=== PATIENT | female | born 1960 | race Caucasian/White ===

== ENCOUNTER → 2018-01-29 | Outpatient (CLI) | payer BC, OTHER ==
[~2018-01-29] MED LIST: DCS100C PO; DOCU-143 PO; EST30C PV; ESTR1TAB24 PO; FERR-84 PO; GLIP10TA13 PO; LISI1TAB8 PO; LOVA20TA2 PO; MEDR2.5T6 PO; MTF500T PO; NAPR-689 PO; OMEP20TA33 PO; OXYC1TAB12 PO; TRAM50TA2 PO; UBID200C PO
--- NOTE | 2018-01-29 15:33 | Diagnostic Imaging Report ---
INDICATION: Routine screening. COMPARISON: Comparison is made with prior mammogram from 04/22/2014. TECHNIQUE: 2D and 3D bilateral screening mammography was performed with computer-aided detection (CAD) system. FINDINGS: Scattered fibroglandular densities are identified bilaterally. No mass or malignant-appearing microcalcifications are seen. The axillae are unremarkable. IMPRESSION: No mammographic features suspicious for malignancy are identified. ACR BI-RADS Category 1: Negative. Result letter will be mailed to the patient. Note: At least 10% of breast cancer is not imaged by mammography. Dictated by: Dictated on workstation # [id number]
== END ==
LOC: RAD 14:28
PROVIDERS: ATTEND Internal Medicine
DX: Z12.31 Encounter for screening mammogram for malignant neoplasm of breast (principal)
CPT/HCPCS: 77067

== ENCOUNTER → 2019-10-15 | Outpatient (CLI) | payer BC ==
--- NOTE | 2019-10-16 18:29 | Diagnostic Imaging Report ---
INDICATION: Screening. At this time there are no current complaints. EXAMINATION: Bilateral digital screening mammogram with CAD. 3D tomographic images were obtained and reviewed. The current study was also evaluated with a Computer Aided Detection (CAD) system. COMPARISON: This study was compared with the prior exams of 01/29/2018 and 04/22/2014. FINDINGS: There are scattered fibroglandular densities in both breasts which could obscure a lesion. Overall, there does not appear to have been any significant change when compared to the prior exam. No primary or secondary sign of malignancy is noted. IMPRESSION: There is no radiographic evidence for malignancy. ACR BI-RADS Category 1: Negative. Result letter will be mailed to the patient. Note: At least 10% of breast cancer is not imaged by mammography. Dictated by: Dictated on workstation # [id number]
== END ==
LOC: RAD 14:45
PROVIDERS: ATTEND Internal Medicine
DX: Z12.31 Encounter for screening mammogram for malignant neoplasm of breast (principal)
CPT/HCPCS: 77063; 77067

== ENCOUNTER 2020-09-13 05:32 | Outpatient (CLI) | payer BC ==
[~2020-09-13] VITALS: Ht 167.7 cm; Wt 89.9 kg
[2020-09-13] MEDS ORDERED: MV-M1TAB57 PO (13:50)
[2020-09-13] MEDS ORDERED: CANA300T PO (13:50)
[2020-09-13] MEDS ORDERED: LORA10TA7 PO (13:50)
[2020-09-13] MEDS ORDERED: ACET-2267 PO (13:50)
[2020-09-13] MEDS ORDERED: NAPR220T66 PO (13:50)
[2020-09-13] MEDS ORDERED: ESTRADIOL PO (13:50)
[2020-09-13] MEDS ORDERED: EST30C VG (13:50)
[2020-09-13] MEDS ORDERED: CYCL10TA9 PO (13:50)
== END 2020-09-13 13:59 | disposition home or self-care (01) ==
LOC: PREOP 05:32
PROVIDERS: ATTEND Obstetrics & Gynecology
DX: Z01.818 Encounter for other preprocedural examination (principal)

== ENCOUNTER 2020-09-24 07:53 | Day surgery (SDC) | payer BC ==
[2020-09-24] VITALS (11 sets, daily range): BP systolic 90–138; BP diastolic 49–77
[~2020-09-24] VITALS: Ht 167.7 cm; Wt 89.9 kg
[~2020-09-24 07:53] MED LIST changes: +ACET-2267 PO; +CANA300T PO; +CYCL10TA9 PO; +EST30C VG; +ESTRADIOL PO; +LORA10TA7 PO; +MV-M1TAB57 PO; +NAPR220T66 PO
[2020-09-24] MEDS ORDERED: ONDANSETRON 4 MG/2 ML (SDV) Z0FRAN IVP PRN ×2 (08:30)
[2020-09-24] MEDS ORDERED: BENZOCAINE/MENTHOL (DERMOPLAST) 56 ML CAN TP PRN (08:30)
[2020-09-24] MEDS ORDERED: ESTROGENS CONJ INJECTION 25 MG in WATER (STERILE) FOR INJECTION 5 ML IV ONE (08:30)
[2020-09-24] MEDS ORDERED: LIDOCAINE/EPI 1%-1:100,000 (XYLOCAINE) 20ML ONE (08:39)
[2020-09-24] MEDS ORDERED: ESTRADIOL VAGINAL CREAM 42.5 GM (ESTRACE) VG ONE (08:39)
[2020-09-24] MEDS: LACTATED RINGERS 1,000 ML IV PRN ×2 (08:50→10:07)
[2020-09-24] MEDS ORDERED: LIDOCAINE PF 2% 5 ML (XYLOCAINE) VIAL ONE (08:59)
[2020-09-24] MEDS ORDERED: proPOfol 200 MG/20 ML (DIPRIVAN) VIAL IV ONE (08:59)
[2020-09-24] MEDS ORDERED: fentaNYL INJ 100 MCG/2 ML AMP ONE ×3 (08:59→12:27)
[2020-09-24] MEDS ORDERED: ONDANSETRON 4 MG/2 ML (SDV) Z0FRAN ONE ×3 (08:59→12:06)
[2020-09-24] MEDS ORDERED: SEVOFLURANE (ULTANE) 15 ML INHAL SOLN ONE ×2 (08:59→10:26)
[2020-09-24] MEDS ORDERED: MIDAZOLAM 2 MG/2 ML (VERSED) VIAL ONE (08:59)
[2020-09-24] MEDS ORDERED: DOCUSATE SODIUM 100 MG (COLACE) CAP PO SCH (09:00)
[2020-09-24] MEDS ORDERED: ONDANSETRON 4 MG/2 ML (SDV) Z0FRAN IV ONE (09:00)
[2020-09-24] MEDS ORDERED: FAMOTIDINE 20MG/2ML IV (PEPCID) IV ONE (09:00)
[2020-09-24] MEDS ORDERED: SCOPOLAMINE 1.5 MG (TRANSDERM-SCOP) PATCH TOP ONE (09:00)
[2020-09-24] MEDS ORDERED: FAMOTIDINE 20MG/2ML IV (PEPCID) ONE (09:04)
[2020-09-24] MEDS ORDERED: SCOPOLAMINE 1.5 MG (TRANSDERM-SCOP) PATCH ONE (09:04)
[2020-09-24 09:06] LABS: BASOPHILS % (AUTO) 0 % (0-10); EOSINOPHILS # (AUTO) 0.1 10^3/uL (0.0-0.3); EOSINOPHILS % (AUTO) 1 % (0-10); HEMATOCRIT 41 % (35-52); HEMOGLOBIN 13.6 g/dL (11.5-16.0); LYMPHOCYTES # (AUTO) 1.3 10^3/uL (1.0-4.0); LYMPHOCYTES % (AUTO) 14 % (12-44); MEAN CORPUSCULAR HEMOGLOBIN 30 pg (25-34); MEAN CORPUSCULAR HGB CONC 33 g/dL (32-36); MEAN CORPUSCULAR VOLUME 91 fL (80-99); MEAN PLATELET VOLUME 11.2 fL (9.0-12.2); MONOCYTES # (AUTO) 0.6 10^3/uL (0.0-1.0); MONOCYTES % (AUTO) 7 % (0-12); NEUTROPHILS # (AUTO) 7.3 10^3/uL (1.8-7.8); NEUTROPHILS % (AUTO) 79 % (42-75); PLATELET COUNT 245 10^3/uL (130-400); WHITE BLOOD COUNT 9.3 10^3/uL (4.3-11.0)
[2020-09-24] MEDS ORDERED: OXYC1TAB87 PO (09:32)
[2020-09-24] MEDS ORDERED: DCS100C PO (09:32)
--- NOTE | 2020-09-24 09:33 | Discharge Inst-Surgical ---
Discharge Inst-Surgical Depart Medication/Instructions New, Converted or Re-Newed RX: Transmitted to Pharmacy Consults/Follow Up Patient Instructions: as directed Orders & Referrals Follow Up Appt: Call to make follow up appt. for patient in 4 weeks. Activity: Rest for 24 hours, than as tolerated. Diet: As tolerated may shower or tub bathe as desired. No driving for 24 hours, no alcoholic beverages for 24 hours, and nothing per vagina (no tampons, douching, or intercoarse) for 4 weeks. Patient to return to the clinic as soon as possible for: Temperature greater than 101F, Severe Pain, Foul discharge from incision or vagina, Excessive Ble eding (more than a period). Activity Activity as Tolerated: No Diet Discharge Diet: No Restrictions RYLEY DIAZ MD Sep 24, 2020 09:33
[2020-09-24] MEDS ORDERED: morphine INJ 10 MG/ML 1ML (SYR OR VIAL) ONE ×2 (10:11→11:43)
[2020-09-24] MEDS ORDERED: ROCURONIUM 10 MG/ML 5 ML SYRINGE IV ONE (10:54)
[2020-09-24] MEDS ORDERED: morphine INJ 10 MG/ML 1ML (SYR OR VIAL) IVP ONE (11:15)
[2020-09-24] MEDS ORDERED: fentaNYL INJ 100 MCG/2 ML AMP IVP ONE (11:15)
[2020-09-24] MEDS ORDERED: MEPERIDINE (DEMEROL) INJ 50 MG/ML IVP ONE (11:15)
[2020-09-24] MEDS ORDERED: ESTROGENS CONJ IV 25 MG/5 ML (PREMARIN) VIAL ONE (11:19)
[2020-09-24] MEDS ORDERED: WATER (STERILE) FOR INJECTION 10 ML ONE (11:19)
[2020-09-24] MEDS ORDERED: KETOROLAC 30 MG/ML VIAL ONE (11:30)
[2020-09-24] MEDS: KETOROLAC 30 MG/ML VIAL IVP SCH ×3 (11:31→23:58)
[2020-09-24] MEDS: ONDANSETRON 4 MG/2 ML (SDV) Z0FRAN IVP PRN ×2 (12:07→12:23)
[2020-09-24] MEDS ORDERED: D5 LR IV SOLUTION 1,000 ML IV ONE (12:28)
[2020-09-24] MEDS: D5 LR IV SOLUTION 1,000 ML IV SCH ×3 (12:34→22:11)
[2020-09-24] MEDS: fentaNYL INJ 100 MCG/2 ML AMP IVP PRN ×2 (12:35→14:34)
--- NOTE | 2020-09-24 19:12 | OPERATIVE REPORT ---
DATE OF SERVICE: 09/24/2020 PREOPERATIVE DIAGNOSIS: Recurrent vaginal prolapse and pathologic skin tags left inframammary fold. POSTOPERATIVE DIAGNOSIS: Same with incidental rectotomy. OPERATIVE PROCEDURE: Anterior and posterior vaginal repairs with sacrospinous ligament suspension as well as repair of incidental rectotomy. OPERATIVE DESCRIPTION: With the patient in the supine position under satisfactory general anesthesia, she was repositioned in dorsal lithotomy position in the [facility] and was prepped and draped in the usual fashion for vaginal surgery. Two skin tags in the left inframmary fold partially ulcerated and inflamed, removed sharply with Iris scissors. A weighted speculum placed in posterior fornix of vagina. The anterior vaginal wall was grasped with two Lizz clamps. Vaginal wall incision was made in the midline. That incision was continued anteriorly to approximately a centimeter from the urethral meatus and posteriorly to the apex of the vagina. The bladder wall was carefully dissected off the muscularis of the vagina back to pubic rami bilaterally and then two layers of 2-0 Vicryl sutures were used to reapproximate the endopelvic fascia and plicate the bladder wall, elevating the bladder and lengthening the urethra. With the bladder back up into position, redundant anterior vaginal muscularis mucosa was removed sharply. Vaginal wall was closed with running locked suture of 3-0 Vicryl Rapide. Good support was evident. Posterior repair was affected by placing Lizz clamps on the perineum and hymenal ring at 5 and 7 o'clock position, an inverted triangle skin was removed from the perineal body and upright triangle from the posterior vaginal floor. The rectovaginal space was entered sharply and dissected bluntly to the apex of the vagina. There was enterocele noted. A digital dissection was carried over to the right rectal pillar and then two sutures of 2-0 Ethibond were placed through the sacrospinous ligament with the Capio device. Those sutures were double armed and each arm of each suture was brought out through the anterior vaginal wall. It was noted at this point that there was a small piece of stool in the operative field and on exploration, there was a 1 cm defect in the anterior rectal wall. This was exposed, cleaned and repaired with a 3-0 Vicryl Rapide suture everting the rectum mucosa into the rectum and then reimbricated also with 3-0 Vicryl Rapide. Good reapproximation was evident. Digital rectal exam confirmed no further defect of the rectum. The rectovaginal space was then obliterated with sutures of 2-0 Vicryl after first performing a pursestring suture to obliterate the enterocele. Additional sutures of 2-0 Vicryl were used to restore the perineal body, redundant posterior vaginal mucosa and muscularis was removed sharply. Vaginal wall was closed with running locked suture of 3-0 Vicryl Rapide. Good reapproximation was evident. Digital rectal exam confirmed that there was a suture in the rectum from the repair closure. The suture was cut with Metzenbaum scissors transrectally. With no further sutures into or through the rectal mucosa with no stricture or stenosis of the rectum and no additional defects of the rectum and the initial defect repaired, the procedure was complete. The vaginal vault was filled with Estrace vaginal cream and a pack of Kerlix gauze was placed. Graff catheter was left to dependent drainage. Sponge and needle counts correct. Blood loss was around 250 mL. The patient tolerated the procedure well and was uneventfully awakened from general anesthesia and transferred to recovery room in stable condition. Job ID: [id number] DocumentID: [id number] Dictated Date: 09/24/2020 11:04:53 Surgical Scheduler Date: 09/24/2020 15:50:34 Dictated By: RYLEY DIAZ MD [email or web address]
[2020-09-24] MEDS: oxyCODONE/APAP 5/325MG (PERCOCET 5) TABLET PO PRN (20:43)
[2020-09-25 00:07] VITALS: BP 92/49
[2020-09-25] MEDS: D5 LR IV SOLUTION 1,000 ML IV SCH ×2 (02:12→06:02)
[2020-09-25 03:45] VITALS: BP 86/45
[2020-09-25 05:58] VITALS: BP 93/53
[2020-09-25] MEDS: KETOROLAC 30 MG/ML VIAL IVP SCH (06:02)
[2020-09-25] MEDS ORDERED: ESTRADIOL 1 MG TAB (ESTRACE) PO SCH (09:00)
[2020-09-25] MEDS ORDERED: DOCUSATE SODIUM 100 MG (COLACE) CAP PO SCH (09:00)
--- NOTE | 2020-09-25 09:09 | Progress Note ---
Standard Progress Note Progress Notes/Assess & Plan Date Seen by a Provider: Sep 25, 2020 Time Seen by a Provider: 09:08 Progress/Assessment & Plan This patient is without complaint. She is ambulating, voiding, tolerating oral intake well has good pain control. Patient denies chest pain, denies shortness of breath, denies nausea and vomiting, and denies headache. Vital Signs Date Time Temp Pulse Resp B/P (MAP) Pulse Ox O2 Delivery O2 Flow Rate FiO2 09/25/20 05:58 93/53 (66) 09/25/20 03:45 36.5 76 18 86/45 (59) 95 Room Air 09/25/20 00:07 36.6 73 18 92/49 (63) 95 Room Air 09/24/20 20:45 36.7 70 18 90/55 (67) 97 Room Air 09/24/20 16:00 80 18 90/49 (63) 96 Room Air 09/24/20 13:00 35.8 74 14 117/59 (78) 96 Room Air 09/24/20 12:18 35.8 71 14 123/57 (79) 97 Room Air 09/24/20 12:08 Room Air 09/24/20 12:00 36.3 14 108/58 (75) 96 Room Air 09/24/20 11:50 15 111/64 (80) 100 Room Air 09/24/20 11:45 Room Air 09/24/20 11:40 16 117/67 (84) 100 OxyMask 2 09/24/20 11:30 18 112/63 (79) 100 OxyMask 2 09/24/20 11:30 OxyMask 2 09/24/20 11:20 16 107/59 (75) 100 OxyMask 4 09/24/20 11:07 OxyMask 8 09/24/20 11:07 36.1 16 94/53 (67) 97 OxyMask 8 I & O 09/25/20 07:00 Intake Total 7395 ml Output Total 1575 ml Balance 5820 ml Vital signs are stable. Patient is afebrile. The abdomen is benign. Pelvic exam is deferred Extremities show no clubbing cyanosis. There is no Homans' sign. Assessment and plan Postoperative day #1 doing well. Plan is for discharge home with follow-up in clinic. I did have a lengthy discussion regarding the surgical procedure with this patient. Including an incidental damage to the anterior wall of the rectum with the posterior repair dissection. The defect was noted was approximately a centimeter in length and was repaired. Patient was given return to clinic precautions with strict precautions for signs symptoms indications of infection or problems with the bowel Final Diagnosis Vaginal prolapse RYLEY DIAZ MD Sep 25, 2020 09:09
[2020-09-25] MEDS: oxyCODONE/APAP 5/325MG (PERCOCET 5) TABLET PO PRN (09:40)
[2020-09-25 10:39] VITALS: BP 111/55
[2020-09-25 11:15] VITALS: BP 111/55
--- NOTE | 2020-09-25 11:26 | Anesthesia-General Post-Op ---
General Post Op Complications Complications None Follow Up Care/Instructions Patient Instructions None needed. Anesthesia/Patient Condition Patient Condition Patient discharged. Chart reviewed. No apparent adverse anesthesia problems. . SHAI HANCOCK CRNA Sep 25, 2020 11:26
[2020-09-25] MEDS ORDERED: IBUPROFEN 800 MG (MOTRIN) TAB PO SCH (12:00)
[2020-09-29] MEDS ORDERED: IBUPROFEN 800 MG (MOTRIN) TAB PO SCH (12:00)
== END 2020-09-25 11:15 ==
LOC: SDC 07:53 → WS 11:44 → SDC 09-25 11:15
PROVIDERS: ATTEND Obstetrics & Gynecology
DX: N99.3 Prolapse of vaginal vault after hysterectomy (principal); L91.8 Other hypertrophic disorders of the skin; I10 Essential (primary) hypertension; E11.9 Type 2 diabetes mellitus without complications; E78.00 Pure hypercholesterolemia, unspecified; Z79.899 Other long term (current) drug therapy; Z79.84 Long term (current) use of oral hypoglycemic drugs
CPT/HCPCS: 57265; 57282; 82947; 85025; 87081; C2631; 36415

== ENCOUNTER → 2020-10-15 | Outpatient (CLI) | payer BC ==
[~2020-10-15] MED LIST changes: +OXYC1TAB87 PO
--- NOTE | 2020-10-19 12:37 | Diagnostic Imaging Report ---
Indication: Routine screening. Comparison is made with prior mammogram from 10/15/2019 and 2017. 2-D and 3-D bilateral screening mammography was performed with CAD. Scattered fibroglandular densities are identified bilaterally. Occasional benign calcifications are noted. The overall parenchymal pattern is stable. No mass or malignant appearing microcalcifications are seen. Axillae are unremarkable. IMPRESSION: BI-RADS Category 2 No mammographic features suspicious for malignancy are identified. ACR BI-RADS Category 2: Benign findings. Result letter will be mailed to the patient. Note: At least 10% of breast cancer is not imaged by mammography. Dictated on workstation # [id number]
== END ==
LOC: RAD 14:45
PROVIDERS: ATTEND Obstetrics & Gynecology
DX: Z12.31 Encounter for screening mammogram for malignant neoplasm of breast (principal)
CPT/HCPCS: 77063; 77067

== ENCOUNTER 2022-10-25 06:06 | Outpatient (CLI) | payer BC ==
[~2022-10-25] VITALS: Ht 170.2 cm; Wt 81.0 kg
[~2022-10-25 06:06] MED LIST changes: +CYCL10TA25 PO; -CYCL10TA9 PO; +DOCU-239 PO
[2022-10-26] MEDS ORDERED: CANA300T PO (12:21)
[2022-10-26] MEDS ORDERED: DULA1.5P2 SQ (12:21)
[2022-10-26] MEDS ORDERED: GABA300S3 PO (12:21)
[2022-10-26] MEDS ORDERED: GABA-486 PO (12:21)
[2022-10-26] MEDS ORDERED: ATOR40TA70 PO (12:21)
[2022-10-26] MEDS ORDERED: LISI1TAB44 PO (12:21)
== END 2022-10-26 12:29 | disposition home or self-care (01) ==
LOC: PREOP 06:06
PROVIDERS: ATTEND Internal Medicine
DX: Z01.818 Encounter for other preprocedural examination (principal)